=== PATIENT | male | born 1995 | race Caucasian/White ===

== ENCOUNTER 2019-10-12 19:59 | Emergency (ER) | payer BC, OTHER ==
[~2019-10-12] VITALS: Ht 193 cm; Wt 70.1 kg
--- NOTE | 2019-10-12 21:26 | ED General ---
General Chief Complaint: Cough/Cold/Flu Symptoms Stated Complaint: VOMITING,ABD PAIN Nursing Triage Note: c/o cough with yellow productive sputum, with pain on inhalation, throat pain and vomiting x4 Nursing Sepsis Screen: No Definite Risk Source of Information: Patient Exam Limitations: No Limitations History of Present Illness Date Seen by Provider: Oct 12, 2019 Time Seen by Provider: 21:25 Initial Comments To ER with reports of a four-day history of cough productive of yellow sputum, pain on deep breathing, wheezing, throat pain, cough to the point of vomiting starting today. No fevers. Timing/Duration: 3-4 Days Severity: Moderate Associated Systoms: Cough Allergies and Home Medications Allergies Coded Allergies: No Known Drug Allergies (Unverified , 10/12/19) Patient Home Medication List Home Medication List Reviewed: Yes Review of Systems Review of Systems Constitutional: see HPI EENTM: see HPI Respiratory: see HPI, cough, wheezing Cardiovascular: no symptoms reported Genitourinary: no symptoms reported Musculoskeletal: no symptoms reported Skin: no symptoms reported Psychiatric/Neurological: No Symptoms Reported Hematologic/Lymphatic: No Symptoms Reported Past Tzswacg-Wmmrqs-Bnbzdl Hx Patient Social History Alcohol Use: Denies Use Recreational Drug Use: No Smoking Status: Current Everyday Smoker Type Used: Cigarettes Recent Foreign Travel: No Contact w/Someone Who Travel: No Recent Infectious Disease Expo: No Recent Hopitalizations: No Immunizations Up To Date Tetanus Booster (TDap): Unknown Seasonal Allergies Seasonal Allergies: No Past Medical History Surgeries: No Respiratory: No Cardiac: No Neurological: No Genitourinary: No Gastrointestinal: Yes (h-pylori) Endocrine: No HEENT: No Cancer: No Psychosocial: No Integumentary: No Blood Disorders: No Physical Exam Vital Signs Vital Signs - First Documented 10/12/19 10/12/19 10/12/19 20:52 21:08 21:26 Temp 36.6 Pulse 56 Resp 18 B/P (MAP) 126/78 (94) Pulse Ox 99 O2 Delivery Room Air FiO2 21 Capillary Refill : Less Than 3 Seconds Height, Weight, BMI Height: '" Weight: lbs. oz. kg; 18.00 BMI Method: General Appearance: No Apparent Distress, WD/WN Eyes: Bilateral Eye Normal Inspection, Bilateral Eye PERRL, Bilateral Eye EOMI HEENT: PERRL/EOMI, TMs Normal Neck: Full Range of Motion, Normal Inspection Respiratory: No Accessory Muscle Use, No Respiratory Distress, Wheezing (right) Cardiovascular: Regular Rate, Rhythm, Normal Peripheral Pulses Gastrointestinal: Normal Bowel Sounds, Non Tender, Soft Extremity: Normal Capillary Refill, Normal Inspection Neurologic/Psychiatric: Alert, Oriented x3 Skin: Normal Color, Warm/Dry Progress/Results/Core Measures Suspected Sepsis Recent Fever Within 48 Hours: No Infection Criteria Present: None New/Unexplained Altered Menta: No Sepsis Screen: No Definite Risk SIRS Temperature: Pulse: 56 Respiratory Rate: 18 Laboratory Tests 10/12/19 21:10: White Blood Count 13.1H Blood Pressure 126 /78 Mean: 94 Laboratory Tests 10/12/19 21:10: Creatinine 0.97, Platelet Count 306, Total Bilirubin 0.6 Results/Orders Lab Results Laboratory Tests Test 10/12/19 21:10 Range/Units White Blood Count 13.1 H 4.3-11.0 10^3/uL Red Blood Count 5.29 4.35-5.85 10^6/uL Hemoglobin 16.4 13.3-17.7 G/DL Hematocrit 47 40-54 % Mean Corpuscular Volume 88 80-99 FL Mean Corpuscular Hemoglobin 31 25-34 PG Mean Corpuscular Hemoglobin Concent 35 32-36 G/DL Red Cell Distribution Width 14.4 10.0-14.5 % Platelet Count 306 130-400 10^3/uL Mean Platelet Volume 10.2 7.4-10.4 FL Neutrophils (%) (Auto) 70 42-75 % Lymphocytes (%) (Auto) 23 12-44 % Monocytes (%) (Auto) 6 0-12 % Eosinophils (%) (Auto) 1 0-10 % Basophils (%) (Auto) 0 0-10 % Neutrophils # (Auto) 9.2 H 1.8-7.8 X 10^3 Lymphocytes # (Auto) 3.0 1.0-4.0 X 10^3 Monocytes # (Auto) 0.8 0.0-1.0 X 10^3 Eosinophils # (Auto) 0.1 0.0-0.3 10^3/uL Basophils # (Auto) 0.0 0.0-0.1 10^3/uL Sodium Level 142 135-145 MMOL/L Potassium Level 3.8 3.6-5.0 MMOL/L Chloride Level 104 98-107 MMOL/L Carbon Dioxide Level 26 21-32 MMOL/L Anion Gap 12 5-14 MMOL/L Blood Urea Nitrogen 9 7-18 MG/DL Creatinine 0.97 0.60-1.30 MG/DL Estimat Glomerular Filtration Rate > 60 BUN/Creatinine Ratio 9 Glucose Level 93 70-105 MG/DL Calcium Level 10.3 H 8.5-10.1 MG/DL Corrected Calcium 8.5-10.1 MG/DL Total Bilirubin 0.6 0.1-1.0 MG/DL Aspartate Amino Transf (AST/SGOT) 14 5-34 U/L Alanine Aminotransferase (ALT/SGPT) 15 0-55 U/L Alkaline Phosphatase 75 40-136 U/L Total Protein 8.4 H 6.4-8.2 GM/DL Albumin 5.3 H 3.2-4.5 GM/DL Micro Results Microbiology 10/12/19 Influenza Types A,B Antigen (RASHAD) - Final, Complete My Orders Orders - AMPARO TRONCOSO APRN Influenza A And B Antigens (10/12/19 21:14) Chest Pa/Lat (2 View) (10/12/19 21:14) Albuterol/Ipra Inhalation Soln (Duoneb I (10/12/19 21:30) Svn Small Volume Nebulizer (10/12/19 21:20) Ondansetron Injection (Zofran Injectio (10/12/19 21:30) Cbc With Automated Diff (10/12/19 21:24) Comprehensive Metabolic Panel (10/12/19 21:24) Medications Given in ED Current Medications Medications Dose Ordered Sig/Samanta Route Start Time Stop Time Status Last Admin Dose Admin Albuterol/ Ipratropium 3 ml ONCE ONCE INH 10/12/19 21:30 10/12/19 21:31 DC 10/12/19 21:29 3 ML Ondansetron HCl 4 mg ONCE ONCE IVP 10/12/19 21:30 10/12/19 21:31 DC 10/12/19 21:25 4 MG Vital Signs/I&O 10/12/19 10/12/19 10/12/19 20:52 21:08 21:26 Temp 36.6 Pulse 56 Resp 18 B/P (MAP) 126/78 (94) Pulse Ox 99 98 O2 Delivery Room Air Room Air FiO2 21 Capillary Refill : Less Than 3 Seconds Blood Pressure Mean: 94 POS Departure Impression Primary Impression: Bronchitis Disposition: 01 HOME, SELF-CARE Condition: Stable Departure-Patient Inst. Decision time for Depature: 21:51 Referrals: NO,LOCAL PHYSICIAN (PCP/Family) Primary Care Physician Patient Instructions: Acute Bronchitis, Adult (DC) Add. Discharge Instructions: 1. Return to ER for any concerns 2. Antibiotics and steroids as directed Scripts Prednisone (Prednisone) 20 Mg Tab 40 MG PO DAILY, #6 TAB 0 Refills Prov: AMPARO TRONCOSO APRN 10/12/19 Amoxicillin (Amoxicillin) 500 Mg Capsule 500 MG PO TID, #21 CAP 0 Refills Prov: AMPARO TRONCOSO APRN 10/12/19 AMPARO TRONCOSO APRN Oct 12, 2019 21:26 POS
[2019-10-12] MEDS ORDERED: ONDANSETRON 4 MG/2 ML (SDV) Z0FRAN IVP ONE (21:30)
[2019-10-12] MEDS ORDERED: RT-ALBUTEROL/IPRATROPIUM 3 ML (DUONEB) VIAL INH ONE (21:30)
[2019-10-12 21:33] LABS: BASOPHILS % (AUTO) 0 % (0-10); EOSINOPHILS # (AUTO) 0.1 10^3/uL (0.0-0.3); EOSINOPHILS % (AUTO) 1 % (0-10); HEMATOCRIT 47 % (40-54); HEMOGLOBIN 16.4 G/DL (13.3-17.7); LYMPHOCYTES % (AUTO) 23 % (12-44); MEAN CORPUSCULAR HEMOGLOBIN 31 PG (25-34); MEAN CORPUSCULAR HGB CONC 35 G/DL (32-36); MEAN CORPUSCULAR VOLUME 88 FL (80-99); MEAN PLATELET VOLUME 10.2 FL (7.4-10.4); MONOCYTES # (AUTO) 0.8 X 10^3 (0.0-1.0); MONOCYTES % (AUTO) 6 % (0-12); NEUTROPHILS # (AUTO) 9.2 X 10^3 (1.8-7.8); NEUTROPHILS % (AUTO) 70 % (42-75); PLATELET COUNT 306 10^3/uL (130-400); RED CELL DISTRIBUTION WIDTH 14.4 % (10.0-14.5); WHITE BLOOD COUNT 13.1 10^3/uL (4.3-11.0)
[2019-10-12 21:47] LABS: ALANINE AMINOTRANSFERASE 15 U/L (0-55); ALBUMIN 5.3 GM/DL (3.2-4.5); ALKALINE PHOSPHATASE 75 U/L (40-136); BILIRUBIN,TOTAL 0.6 MG/DL (0.1-1.0); BUN/CREATININE RATIO 9; CALCIUM 10.3 MG/DL (8.5-10.1); CARBON DIOXIDE 26 MMOL/L (21-32); CHLORIDE 104 MMOL/L (98-107); CREATININE SERUM 0.97 MG/DL (0.60-1.30); GFR ESTIMATED > 60; GLUCOSE 93 MG/DL (70-105); POTASSIUM 3.8 MMOL/L (3.6-5.0); SODIUM 142 MMOL/L (135-145); TOTAL PROTEIN 8.4 GM/DL (6.4-8.2)
[2019-10-12] MEDS ORDERED: PRD20T PO (21:52)
[2019-10-12] MEDS ORDERED: AMOX500C2 PO (21:52)
[2019-10-12] MEDS ORDERED: AMOXICILLIN 500 MG (POLYMOX) CAP PO STA (21:53)
[2019-10-12] MEDS ORDERED: predniSONE 20 MG TAB PO ONE (22:00)
[2019-10-12 22:10] VITALS: BP 123/63
--- NOTE | 2019-10-12 22:33 | Diagnostic Imaging Report ---
Patient History: Chest pain.. Technique: Two views of the chest Comparison: None FINDINGS: The lung volumes are normal. No focal consolidation is seen. No large pleural effusion or pneumothorax is seen. The cardiomediastinal silhouette is normal in size and contour. No acute osseous abnormality is seen. IMPRESSION: 1. No acute pleuroparenchymal process. Dictated by: Dictated on workstation # [id number]
== END 2019-10-12 22:08 | disposition home or self-care (01) ==
LOC: EDUNIT# 19:59 → ER 20:00
DX: J40 Bronchitis, not specified as acute or chronic (principal); F17.210 Nicotine dependence, cigarettes, uncomplicated
CPT/HCPCS: 36415; 71046; 80053; 85025; 87804; 94640

== ENCOUNTER 2020-01-07 10:23 | Emergency (ER) | payer BC ==
[~2020-01-07] VITALS: Ht 193 cm; Wt 70.3 kg
[~2020-01-07 10:23] MED LIST: AMOX500C2 PO; PRD20T PO
--- NOTE | 2020-01-07 10:59 | ED Headache ---
General Chief Complaint: Head/Cervical Problems Stated Complaint: HEADACHE Nursing Triage Note: AMB TO ED REPORTS FOR LAST 2 MONTHS HAS WOKE UP HEADACHE THAT MADE HIM CRY. BY AFTERNOON HEADACHE BETTR OTC PAIN MEDS NOT HELPING. ADMITS TO SMOKING POT LAST TIME HE SMOKED [place] YESTERDAY. Nursing Sepsis Screen: No Definite Risk Source: patient History of Present Illness Date Seen by Provider: Jan 07, 2020 Time Seen by Provider: 10:35 Initial Comments PT ARRIVES VIA POV FROM HOME C/O HEADACHE FOR 2 MONTHS STATES HE WAKES UP WITH HEADACHE, THEN IS GONE BY AFTERNOON STATES "I BEEN CRYING BECAUSE IT HURTS STATES HE FEELS PRESSURE BEHIND BOTH EYES NO VISION CHANGES NO NAUSEA/VOMITING NO DIZZINESS NO FEVER NO URI/SINUS SYMPTOMS OR COUGH NO SORE THROAT NO NECK PAIN OR STIFFNESS NO PARESTHESIAS OR MOTOR DEFICITS SYMPTOMS NO DIFFERENT TODAY IN ANY WAY HAS NOT SOUGHT CARE AT ANY TIME FOR THIS HAS NOT TAKEN ANYTHING FOR PAIN AT ANY TIME. PT DRANK ALCOHOL LAST NIGHT PT SMOKES MARIJUANA ON REGULAR BASIS PT SMOKES 1 1/2 PPD OF CIGARETTES. PCP: NONE Allergies and Home Medications Allergies Coded Allergies: No Known Drug Allergies (Unverified , 10/12/19) Home Medications Amoxicillin 500 Mg Capsule, 500 MG PO TID Prescribed by: AMPARO TRONCOSO on 10/12/192151 Amoxicillin/Potassium Clav 1 Each Tablet, 1 EACH PO BID Prescribed by: PANDA CHAVARRIA on 01/07/20 120 Fluticasone Propionate 9.9 Ml [place].susp, 2 SPRAYS NS BID Prescribed by: PANDA CHAVARRIA on 01/07/20 120 Guaifenesin/Dextromethorphan 1 Each Tbmp.12hr, 1 EACH PO BID Prescribed by: PANDA CHAVARRIA on 01/07/201204 Methylprednisolone 4 Mg Tab.ds.pk, 4 MG PO UD Prescribed by: PANDA CHAVARRIA on 01/07/201204 Prednisone 20 Mg Tab, 40 MG PO DAILY Prescribed by: AMPARO TRONCOSO on 10/12/192151 Patient Home Medication List Home Medication List Reviewed: Yes Review of Systems Review of Systems Constitutional: no symptoms reported; No chills, No diaphoresis, No dizziness, No fever, No malaise, No weakness Eyes: No Symptoms Reported; Denies Blurred Vision, Denies Decreased Acuity, Denies Photophobia Ears, Nose, Mouth, Throat: no symptoms reported Respiratory: no symptoms reported Cardiovascular: no symptoms reported Gastrointestinal: no symptoms reported; No nausea, No vomiting Genitourinary: no symptoms reported Musculoskeletal: no symptoms reported; No neck pain Skin: no symptoms reported Psychiatric/Neurological: See HPI, Headache; Denies Numbness, Denies Paresthesia, Denies Seizure, Denies Tingling, Denies Tremors, Denies Weakness Past Gwfbnta-Pklkji-Mcdyiw Hx Past Med/Social Hx: Reviewed and Corrections made Patient Social History Alcohol Use: Regular Use Recreational Drug Use: Yes (THC ON REGULAR BASIS) Drug of Choice: THC ON REGULAR BASIS Smoking Status: Current Everyday Smoker (1 12/01 PPD) Type Used: Cigarettes (12/01 PPD) Recent Foreign Travel: No Contact w/Someone Who Travel: No Recent Infectious Disease Expo: No Recent Hopitalizations: No Immunizations Up To Date Tetanus Booster (TDap): Unknown Seasonal Allergies Seasonal Allergies: No Past Medical History Surgeries: Yes (EGD) Respiratory: No Cardiac: No Neurological: No Reproductive Disorders: No Genitourinary: No Gastrointestinal: Yes (EGD; H. PYLORI) Musculoskeletal: No Endocrine: No HEENT: No Cancer: No Psychosocial: No Integumentary: No Blood Disorders: No Physical Exam Vital Signs Vital Signs - First Documented 01/07/20 10:23 Temp 37.2 Pulse 92 Resp 18 B/P (MAP) 123/43 (69) Pulse Ox 100 Capillary Refill : Less Than 3 Seconds Height, Weight, BMI Height: '" Weight: lbs. oz. kg; 18.00 BMI Method: General Appearance: WD/WN, no apparent distress, thin, other (UNKEMPT) HEENT: PERRL/EOMI, TMs normal, pharynx normal, other (NASAL CONGESTION AND CLEAR NASAL DRAINAGE. RIGHT FRONTAL AND MAXILLARY TENDERNESS) Neck: non-tender, full range of motion, supple, normal inspection; No lymphadenopathy (R), No lymphadenopathy (L) Cardiovascular: normal peripheral pulses, regular rate, rhythm, no murmur Respiratory: normal breath sounds, no respiratory distress, no accessory muscle use Gastrointestinal: non tender, soft Back: normal inspection Extremities: normal inspection, normal capillary refill Psychiatric: alert, oriented x 3 [place] Nerves: normal hearing, normal speech, PERRL Coordination/Gait: normal gait Motor/Sensory: no motor deficit, no sensory deficit, no pronator drift Skin: normal color, warm/dry, tattoos/piercings Progress/Results/Core Measures Results/Orders My Orders Orders - PANDA CHAVARRIA DO Ct Head/Maxillofacial Wo (01/07/20 10:41) Vital Signs/I&O 01/07/20 10:23 Temp 37.2 Pulse 92 Resp 18 B/P (MAP) 123/43 (69) Pulse Ox 100 Blood Pressure Mean: [address] HEAD/MAXILLFACIALS--SINUS DISEASE, WORSE ON RIGHT, WITH NEAR COMPLETE OPACIF ICATION OF RIGHT FRONTAL SINUS. AGE INDETERMINATE. NON SPECIFIC AND VERY VAGUE HYPERDENSITIES ALONG SULCI OF BILATERAL PARIETAL LOBES--ARTIFACT VS TINY CALCIFICATION. CANNOT COMPLETELY EXCLUDE TINY AMOUNT OF SUBARACHNOID BLOOD, BUT IS LESS LIKELY---PER RADIOLOGIST REPORT AT 1156 Reviewed: Reviewed by Me Departure Impression Primary Impression: Sinusitis Disposition: HOME, SELF-CARE Condition: Stable Departure-Patient Inst. Referrals: NO,LOCAL PHYSICIAN (PCP/Family) Primary Care Physician Patient Instructions: Sinusitis, Adult (DC) Add. Discharge Instructions: HOME, REST TYLENOL 1 GRAM/ MOTRIN 800 MG 4 TIMES A DAY FOR PAIN OR FEVER FOLLOW UP WITH DR OF CHOICE IN 1 WEEK FOR FURTHER CARE All discharge instructions reviewed with patient and/or family. Voiced understanding. Scripts Guaifenesin/Dextromethorphan (Mucinex Dm ER 1,200-60 mg Tab) 1 Each Tbmp.12hr 1 EACH PO BID for 10 Days, #20 EA Prov: PANDA CHAVARRIA DO 01/07/20 Methylprednisolone (Medrol) 4 Mg Tab.ds.pk 4 MG PO UD, #1 PKG Prov: PANDA CHAVARRIA DO 01/07/20 Fluticasone Propionate (Flonase Allergy Relief) 9.9 Ml [place].susp 2 SPRAYS NS BID, #1 SPRAY Prov: PANDA CHAVARRIA DO 01/07/20 Amoxicillin/Potassium Clav (Augmentin 875-125 Tablet) 1 Each Tablet 1 EACH PO BID for INFECTION, #30 TAB Prov: PANDA CHAVARRIA DO 01/07/20 PANDA CHAVARRIA DO Jan 07, 2020 10:59
--- NOTE | 2020-01-07 11:43 | Diagnostic Imaging Report ---
EXAMINATION: CT brain, CT maxillofacial bones from 01/07/2020. TECHNIQUE: Multiple contiguous axial images were obtained through the head and facial bones without the use of intravenous contrast. Auto Exposure Controls were utilized during the CT exam to meet ALARA standards for radiation dose reduction. INDICATION: Woke up with a headache. Symptoms for last 2 months. FINDINGS: CT Brain: There is no evidence for an acute infarct. No mass, mass effect or midline shift appreciated. No hydrocephalus. There are vague linear hyperdensities noted within the right parietal sulci images 13 through 15. This is a nonspecific finding as very vague similar findings are noted in the peripheral sulci on the left image 14. These could represent tiny areas of perhaps a calcification. A small amount of subarachnoid blood however is difficult to completely exclude and therefore a short-term interval follow-up is recommended. There is no focal adjacent edema or mass effect at this time. IMPRESSION: 1. Very vague linear hyperdensities along the sulci of bilateral parietal lobes. Please see the above discussion. This could very well represent artifact versus tiny calcification. A very small amount of subarachnoid blood is difficult to completely exclude although less likely. Therefore, a 24-hour follow-up would be recommended for reevaluation. CT maxillofacial: There is diffuse mucosal thickening within the sinuses. This is most marked within the right ethmoid air cells with near complete opacification of the right frontal sinus. No air-fluid levels are seen. The osseous structures appear intact. Both orbits are unremarkable. IMPRESSION: 1. Sinus disease as described worst on the right with near complete opacification of the right frontal sinus. These findings are age indeterminate with acute sinusitis not excluded; correlate with patient's symptoms. Dictated by: Dictated on workstation # [id number]
[2020-01-07] MEDS ORDERED: METH4TAB PO (12:05)
[2020-01-07] MEDS ORDERED: GUAI1TBM19 PO (12:05)
[2020-01-07] MEDS ORDERED: AMOX-358 PO (12:05)
[2020-01-07] MEDS ORDERED: FLUT9.9S NS (12:05)
[2020-01-07 12:47] VITALS: BP 123/43
== END 2020-01-07 12:47 | disposition home or self-care (01) ==
LOC: EDUNIT# 10:23 → ER 10:24
DX: J32.9 Chronic sinusitis, unspecified (principal); F17.210 Nicotine dependence, cigarettes, uncomplicated; Z79.52 Long term (current) use of systemic steroids
CPT/HCPCS: 70450; 70486